=== PATIENT | female | born 1995 | race American Indian/Alaskan Native ===

== ENCOUNTER 2019-06-06 00:38 | Emergency (ER) | payer SELFPAY ==
[2019-06-06 01:18] VITALS: BP 134/72
[2019-06-06] MEDS ORDERED: ZOFRAN ODT PO ONE (06:06)
[2019-06-06] MEDS ORDERED: PERCOCET 5/325 PO ONE (06:06)
[2019-06-06] MEDS ORDERED: XYLOCAINE 1% MPF 5 mL INFILTRATI ONE ×2 (06:06→07:21)
[2019-06-06] MEDS ORDERED: ROCEPHIN IM ONE (07:21)
--- NOTE | 2019-06-06 07:25 | Emergency Department Report ---
Abscess Boil HPI - HPI Chief Complaint: Skin/Abscess/Foreign Body Stated Complaint: CYST INFECTION Time Seen by Provider: 06/06/19 07:09 Duration: 5 Days Location: Other Severity: Mild History: Yes Pain, Yes Purulent Drainage, Yes Previous History, No Fever, No Numbness, No Foreign Body, No Insect Bite HPI: 24 yo with abscess on right thigh; has had these before. did not see pcp. has done nothing at home to alleviate pain. rx none Home Medications: Previous Rx's Medication Instructions Recorded Last Taken Type Ibuprofen [Motrin] 800 mg PO Q8HR PRN #30 tablet 06/06/19 Unknown Rx cephALEXin [Keflex] 500 mg PO Q12HR #20 cap 06/06/19 Unknown Rx ED Review of Systems ROS: Stated complaint: CYST INFECTION Other details as noted in HPI Comment: All other systems reviewed and negative ED Past Medical Hx - Past Medical History Previous Medical History?: No - Surgical History Past Surgical History?: No - Family History Family history: no significant - Social History Smoking Status: Never Smoker Substance Use Type: None - Medications Home Medications: Home Medications Medication Instructions Recorded Confirmed Last Taken Type Ibuprofen [Motrin] 800 mg PO Q8HR PRN #30 tablet 06/06/19 Unknown Rx cephALEXin [Keflex] 500 mg PO Q12HR #20 cap 06/06/19 Unknown Rx ED Abscess Boil Physical Exam - Exam General: Vital signs noted. No distress. Alert and acting appropriately. Size: 4 cm Exam: Yes Tenderness, Yes Fluctuance, Yes Surrounding Cellulites/Erythema, Yes Normal Neurologic Exam, Yes Normal Circulation, No Lymphangitis, No Crepitation, No Heart Murmur I & D Note - I & D Note I & D Note: wound cleaned, opened; mod amount purulent drainaged; cleaned and dressed ED Course Vital Signs 06/06/19 01:15 Temperature 97.9 F Pulse Rate 83 Respiratory 20 Rate Blood Pressure 134/72 O2 Sat by Pulse 100 Oximetry Critical care attestation.: If time is entered above; I have spent that time in minutes in the direct care of this critically ill patient, excluding procedure time. ED Medical Decision Making - Medical Decision Making I/D medicated for pain rocephin IM dc home with pcp follow up Vital Signs 06/06/19 01:15 Temperature 97.9 F Pulse Rate 83 Respiratory 20 Rate Blood Pressure 134/72 O2 Sat by Pulse 100 Oximetry - Differential Diagnosis simple abscess ED Disposition Clinical Impression: Abscess Disposition: DC-01 TO HOME OR SELFCARE Is pt being admited?: No Does the pt Need Aspirin: No Condition: Stable Instructions: Abscess (ED) Additional Instructions: soak in epsom salts three times per day for 20 minutes meds as ordered follow up with pcp referral below Referrals: RAGHAV THOMAS MD [Staff Physician] - 3-5 Days Time of Disposition: 07:23
== END 2019-06-06 08:21 | disposition home or self-care (01) ==
LOC: ED 00:38
DX: L02.91 Cutaneous abscess, unspecified (principal)
CPT/HCPCS: 10060; 96372; 99282; J0696; Q0162

== ENCOUNTER 2022-06-29 17:45 | Emergency (ER) | payer SELFPAY ==
[2022-06-29 23:24] LABS: Bacteria,Urine 1+ /HPF (Negative)
[2022-06-29 23:25] LABS: Blood Urea Nitrogen 8 mg/dL (7-17); Calcium 8.8 mg/dL (8.4-10.2); Hemolysis Index 0
[2022-06-29 23:26] LABS: Basophils % (Auto) 0.5 % (0.0-1.8); Eosinophils # (Auto) 0.1 K/mm3 (0.0-0.4); Eosinophils % (Auto) 0.9 % (0.0-4.3); Hematocrit 31.7 % (30.3-42.9); Hemoglobin 10.5 gm/dl (10.1-14.3); Lymphocytes # (Auto) 1.9 K/mm3 (1.2-5.4); Lymphocytes % (Auto) 19.4 % (13.4-35.0); Mean Corpuscular HGB Conc 33 % (30-34); Mean Corpuscular Volume 83 fl (79-97); Monocytes # (Auto) 1.3 K/mm3 (0.0-0.8); Platelet Count 188 K/mm3 (140-440); Red Cell Distribution Width 14.6 % (13.2-15.2)
[2022-06-29 23:26] LABS: Color,Urine Yellow (Yellow)
[2022-06-29 23:37] LABS: BUN/Creatinine Ratio 16
--- NOTE | 2022-06-30 05:26 | Ultrasound Report ---
ULTRASOUND OBSTETRIC Indication: 18 weeks and vaginal bleeding Findings: There is a single intrauterine . BPD = 4.1 cm = 18 weeks, 3 day(s). Head circumference = 15.3 cm = 18 weeks, 2 day(s). Abdominal circumference = 13.2 cm = 18 weeks, 5 day(s). Femur length = 2.7 cm = 18 weeks, 1 day(s). Overall estimated sonographic age = 18 weeks, 3 day(s). heart rate is 158 beats per minute. Estimated weight is 238 grams position is cephalic. Cervix appears closed. movement is present. Placenta is posterior and grade 0 . Amniotic fluid volume appears normal. Maternal adnexa appear normal. Impression: 1. Single living intrauterine with estimated sonographic age of 18 weeks, 3 day(s). 2. Large uterine mass suspicious for fibroid measuring 8 cm in diameter is noted posterior to the matt centa. Signer Name: Aron Cotton MD Signed: 06/30/2022 5:22 AM Workstation Name: [id number]
--- NOTE | 2022-06-30 06:13 | Emergency Department Report ---
ED Female HPI - General Chief complaint: Abdominal Pain Stated complaint: BAD CRAMPS, STOMACH PAIN Time Seen by Provider: 06/29/22 21:08 Source: patient Mode of arrival: Ambulatory Limitations: No Limitations - Related Data Previous Rx's Medication Instructions Recorded Last Taken Type Ibuprofen [Motrin] 800 mg PO Q8HR PRN #30 tablet 06/06/19 Unknown Rx cephALEXin [Keflex] 500 mg PO Q12HR #20 cap 06/06/19 Unknown Rx Allergies Allergy/AdvReac Type Severity Reaction Status Date / Time No Known Allergies Allergy Verified 06/29/22 19:58 ED Review of Systems ROS: Stated complaint: BAD CRAMPS, STOMACH PAIN Other details as noted in HPI ED Past Medical Hx - Social History Smoking Status: Never Smoker Substance Use Type: None - Medications Home Medications: Home Medications Medication Instructions Recorded Confirmed Last Taken Type Ibuprofen [Motrin] 800 mg PO Q8HR PRN #30 tablet 06/06/19 Unknown Rx cephALEXin [Keflex] 500 mg PO Q12HR #20 cap 06/06/19 Unknown Rx ED Physical Exam - General Limitations: No Limitations ED Medical Decision Making - Lab Data Result diagrams: 06/29/22 22:27 06/29/22 22:27 - Radiology Data Radiology results: report reviewed [facility] [address] [place] [address] Ultrasound Report Signed Patient: AKIL BLAKE MR#: [id number] : 1995 Acct:[id number] Age/Sex: 27 / F ADM Date: 06/29/22 Loc: ED Attending Dr: Ordering Physician: ALEX CASTILLO Date of Service: 06/30/22 Procedure(s): US OB >= 14 weeks Fetus Accession Number(s): [id number] cc: ALEX CASTILLO ULTRASOUND OBSTETRIC Indication: 18 weeks and vaginal bleeding Findings: There is a single intrauterine . BPD = 4.1 cm = 18 weeks, 3 day(s). Head circumference = 15.3 cm = 18 weeks, 2 day(s). Abdominal circumference = 13.2 cm = 18 weeks, 5 day(s). Femur length = 2.7 cm = 18 weeks, 1 day(s). Overall estimated sonographic age = 18 weeks, 3 day(s). heart rate is 158 beats per minute. Estimated weight is 238 grams position is cephalic. Cervix appears closed. movement is present. Placenta is posterior and grade 0 . Amniotic fluid volume appears normal. Maternal adnexa appear normal. Impression: 1. Single living intrauterine with estimated sonographic age of 18 weeks, 3 day(s). 2. Large uterine mass suspicious for fibroid measuring 8 cm in diameter is noted posterior to the placenta. Signer Name: Aron Cotton MD Signed: 06/30/2022 5:22 AM Workstation Name: [id number] Transcribed By: Dictated By: Aron Cotton MD Electronically Authenticated By: Aron Cotton MD Signed Date/Time: 06/30/22521 DD/ 8 TD/TT: Print Cancel Critical care attestation.: If time is entered above; I have spent that time in minutes in the direct care of this critically ill patient, excluding procedure time. ED Disposition Clinical Impression: Uterine fibroid in , Discomfort during Disposition: 01 HOME / SELF CARE / HOMELESS Is pt being admited?: No Does the pt Need Aspirin: No Condition: Stable Instructions: Abdominal Pain (ED), Uterine Fibroids Referrals: CESAR HAMMONDS MD [Primary Care Provider] - 3-5 Days [facility] [Provider Group] - 3-5 Days
[2022-06-30 07:23] VITALS: BP 132/66
== END 2022-06-30 07:23 | disposition home or self-care (01) ==
LOC: ED 17:45
DX: O34.12 Maternal care for benign tumor of corpus uteri, second trimester (principal); R10.9 Unspecified abdominal pain; Z3A.18 18 weeks gestation of pregnancy
CPT/HCPCS: 36415; 76805; 80048; 81001; 84702; 85025; 99284